=== PATIENT | male | born 1940 | race Caucasian/White ===

== ENCOUNTER 2020-10-01 13:50 | Emergency (ER) | payer MEDICARE, OTHER, SELFPAY ==
[2020-10-01 13:50] VITALS: BP 134/70; PULSE 67; RESP 16; TEMP 36.6; O2SAT 98; BMI 34.2
--- NOTE | 2020-10-01 14:23 | ED.BACK ---
HPI - Back Pain/Injury General Chief Complaint: Back Pain/Injury Stated Complaint: BAD SCIATICA OF THE BACK SENT BY Time Seen by Provider: 10/01/20 14:04 Source: patient Patient History Social History Smoking Status: Never smoker Smoking Status: Never smoker Substance Use Type: does not use Exam Initial Vital Signs Initial Vital Signs: Vital Signs Temperature 97.8 F 10/01/20 13:50 Pulse Rate 67 10/01/20 13:50 Respiratory Rate 16 10/01/20 13:50 Blood Pressure 134/70 10/01/20 13:50 Pulse Oximetry 98 10/01/20 13:50 Course Orders Ordered: Discontinued Medications Hydromorphone HCl (Hydromorphone 1 Mg Inj) 2 mg IM NOW ONE Stop: 10/01/20 14:24 Vital Signs Vital signs: Vital Signs - 8 hr 10/01/20 13:50 Temperature 97.8 F Pulse Rate 67 Respiratory Rate 16 Blood Pressure 134/70 Pulse Oximetry 98
--- NOTE | 2020-10-01 14:33 | ED_ITS ---
HPI - General Adult General Chief complaint: Back Pain/Injury Stated complaint: BAD SCIATICA OF THE BACK SENT BY DR Rothman Seen by Provider: 10/01/20 14:04 Source: patient Mode of arrival: Ambulatory Limitations: no limitations History of Present Illness HPI narrative: 80-year-old male sent to emergency department by the other spatial scientist for evaluation of his lower back pain. Patient has had chronic lower back pain. Has had 2 prior surgeries of his lower back. Has had MRIs in the past. Is under the care of orthopedic spine providers. Approximately 10 days ago had spinal injections he states since then he has not had any relief of the symptoms. He contacted his orthopedic provider who started him on a Medrol dose pack. He has only taken 1-2 days of this without any improvement. States after the 1st days medication he started having some shortness of breath and was transferred to an outside hospital by EMS where he was evaluated and patient states that he was told that he most likely had a panic attack secondary to the steroids. Despite this he has continued the medication. He also has a prescription for hydrocodone which he states does not help his back and on only makes him constipated. He also has a history of atrial fibrillation which is why he was at his other spatial scientist's office today. He was rate controlled with the plan for a cardioversion in several weeks however at his other spatial scientist office patient had worsening lower back pain and so was sent to the emergency department for evaluation. Patient does state that it is both sides of his lower back. Does not radiate down to his legs. No bowel or bladder symptoms. Related Data Home Medications Medication Instructions Recorded Confirmed atorvastatin 40 mg PO DAILY 10/01/20 10/01/20 irbesartan 150 mg PO DAILY 10/01/20 10/01/20 tamsulosin 0.4 mg PO DAILY 10/01/20 10/01/20 triamterene-hydrochlorothiazid 1 cap PO DAILY 10/01/20 10/01/20 warfarin 5 mg PO DAILY 10/01/20 10/01/20 Previous Rx's Medication Instructions Recorded hydromorphone [Dilaudid] 2 mg PO Q4-6H PRN #20 tab 10/01/20 Allergies Allergy/AdvReac Type Severity Reaction Status Date / Time No Known Drug Allergies Allergy Verified 10/01/20 14:36 Review of Systems Constitutional Constitutional: Denies fever(s) and Denies headache(s) ENT Ears, Nose, Mouth, and Throat: Denies vertigo, Denies dizziness and Denies headache(s) Cardiovascular Cardiovascular: Denies chest pain, Reports rapid heart rate and Denies dyspnea Respiratory Respiratory: Denies cough and Denies dyspnea Gastrointestinal Gastrointestinal: Denies abdominal pain, Denies change in bowel habits, Denies nausea and Denies vomiting Genitourinary Genitourinary: Denies dysuria, Denies urinary hesitancy, Denies urinary in continence and Denies urinary urgency Genitourinary: Denies difficulty voiding, Denies dysuria, Denies urinary incontinence, Denies urinary hesitancy and Denies urinary urgency Musculoskeletal Musculoskeletal: Reports back pain, Denies myalgias, Denies numbness and Denies tingling Integumentary/Breasts Skin/Breast: Denies lesions and Denies rash Neurologic Neurologic: Denies vertigo, Denies dizziness, Denies headache(s), Denies numbness and Denies tingling Hematologic/Lymphatic Comments: On anticoagulation Allergic/Immunologic Allergic/Immunologic: Denies urticaria Patient History Medical History Atrial fibrillation Chronic back pain Social History Smoking Status: Never smoker Smoking Status: Never smoker Substance Use Type: does not use Exam Initial Vital Signs Initial Vital Signs: Vital Signs Temperature 97.8 F 10/01/20 13:50 Pulse Rate 67 10/01/20 13:50 Respiratory Rate 16 10/01/20 13:50 Blood Pressure 134/70 10/01/20 13:50 Pulse Oximetry 98 10/01/20 13:50 Const General: cooperative and healthy appearing Limitations: mental status not altered [facility] Head: normal to inspection and normocephalic Resp Effort & Inspection: normal respiratory effort Cardio Rate: regular rate Rhythm: abnormal rhythm Back/Spine/Pelvis Thoracic/Lumbar Spine: paraspinal tenderness Skin Lesions: no lesions Rashes: no rashes Neuro General: patient alert, patient awake and patient oriented x3 Speech: speech normal Gait: normal gait Sensory Exam: no sensory deficits noted Extrem General: normal to inspection, capillary refill normal and No edema Psych Appearance: grossly normal and well kempt Course Orders Ordered: Discontinued Medications Hydromorphone HCl (Hydromorphone 1 Mg Inj) 2 mg IM NOW ONE Stop: 10/01/20 14:24 Last Admin: 10/01/20 14:51 Dose: 2 mg Documented by: LAUREN Vital Signs Vital signs: Vital Signs - 8 hr 10/01/20 13:50 10/01/20 15:35 10/01/20 16:00 Temperature 97.8 F Pulse Rate 67 74 Respiratory Rate 16 Blood Pressure 134/70 131/69 Pulse Oximetry 98 95 96 10/01/20 16:13 Temperature Pulse Rate 68 Respiratory Rate 18 Blood Pressure 131/64 Pulse Oximetry 97 Medical Decision Making MDM Narrative Medical decision making narrative: Patient was in atrial fibrillation however he was rate controlled here in the emergency department. The other spatial scientist who he saw earlier today electronically transmitted medications for the patient to [facility]. The patient was informed of this. He states these medicines have already been picked up by his . With regard to his lower back pain this pain that he is experiencing is not new. He is not having any bowel or urinary incontinence. No saddle anesthesia. No fevers. He did recently have a spinal injection however he stop the Coumadin for 5 days prior to the injection and for 5 days after the injection. He states that the pain that he is having now is the same pain that he has been having since even before the injection. He does not think that it is new. I did consider other condition such as a abscess/hematoma given the fact that he just had the injections however after continued questioning patient states that his pain is not new and is the same and just has continued. Because of this and will hold on radiologic studies for now however he was given strict return precautions and if his symptoms were to worsen here developed new symptoms or if they were to change he does need to return emergency department about recommend further evaluation of this. Patient has been on Percocet and Vicodin he states these do not help his symptoms at all. They do cause constipation. He is on a Medrol Dosepak. I was able to discuss the case with Dr. Salgado with Orthopedic Spine surgery who stated that unfortunately there is not much more that we could do for the patient except for potential surgery. In discussion with the orthopedic office the patient does have a follow-up appointment on October 23. I was able to change this to October 07 at their [place] office. Patient was given information with regard to this. Will send him home with oral pain medication. This was electronically transmitted to the pharmacy of his choice. We did instruct him being on bowel regimen to prevent constipation. He expressed understanding of this. Will return if his symptoms worsen. We also discussed avoiding falling at home given this medication can cause him to be drowsy. He expressed understanding of this as well. I did tell the patient that the other spatial scientist recommended that he follow-up with an INR on Wednesday this week. Patient expressed understanding and agreement. Discharge Plan Departure Patient Disposition: Home Clinical Impression: Lumbar back pain Instructions: DI for Low Back Pain Activity Restrictions/Additional Instructions: Continue all of your medications as directed. A new prescription for pain medication was electronically transmitted to [facility] in [place]. I was able to schedule you an appointment with Dr. Salgado with Orthopedics at their [facility] located at [address] [place] [address]. This appointment is for WednesdayOctober 07 at 3:20 in the afternoon with a check-in time of 3:05 in the afternoon. Continue the rest of the medicines prescribed to you by Cardiology as well. Prescriptions: New hydromorphone [Dilaudid] 2 mg tablet 2 mg PO Q4-6H PRN (Reason: pain) Qty: 20 RF: 0 No Action atorvastatin 20 mg tablet 40 mg PO DAILY RF: 0 triamterene-hydrochlorothiazid 37.5-25 mg capsule 1 cap PO DAILY RF: 0 tamsulosin 0.4 mg capsule 0.4 mg PO DAILY RF: 0 warfarin 5 mg Tablet 5 mg PO DAILY RF: 0 irbesartan 150 mg tablet 150 mg PO DAILY RF: 0
[2020-10-01] MEDS: HYDROMORPHONE 1 MG INJ 2 MG IM (14:51)
[2020-10-01 15:35] VITALS: PULSE 74; O2SAT 95
[2020-10-01 16:00] VITALS: BP 131/69; O2SAT 96
[2020-10-01 16:13] VITALS: BP 131/64; PULSE 68; RESP 18; O2SAT 97
== END 2020-10-01 18:54 | disposition home or self-care (01) ==
PROVIDERS: Emergency Provider Emergency Medicine
DX: M54.5 Low back pain (principal); I48.91 Unspecified atrial fibrillation; Z79.01 Long term (current) use of anticoagulants
CPT/HCPCS: 96372; 99281; 99283; STOP; J1170

== ENCOUNTER → 2020-10-28 08:46 | Outpatient (CLI) | payer MEDICARE, OTHER, SELFPAY ==
[2020-10-28 10:37] LABS: COVID19 -Nasal RAPID Negative (Negative)
== END ==
PROVIDERS: Nurse Practitioner; Visit Provider Student in an Organized Health Care Education/Training Program
DX: Z20.828 Contact with and (suspected) exposure to other viral communicable diseases (principal)
CPT/HCPCS: 87635

== ENCOUNTER 2020-10-29 08:58 | Inpatient (IN) | payer MEDICARE, OTHER, SELFPAY ==
[2020-10-22 12:32] VITALS: BMI 33.0
[2020-10-29] VITALS (26 sets, daily range): BP systolic 76–124; BP diastolic 27–86; PULSE 66–98; RESP 10–18; TEMP 36.1–37.1; O2SAT 90–97; BMI 33.0
--- NOTE | 2020-10-29 | DI.RAD.S_ITS ---
PROCEDURE: XR LUMBAR SPINE 2-3V INDICATIONS: L4-S1 TLIF W/ LAMINECTOMY TECHNIQUE: 2 views of the lumbar spine were acquired. COMPARISON: None. FINDINGS: Immediate postoperative examination shows expected anatomic alignment established after L4 through S1 posterior fusion with transverse pedicle screws and vertical fixation rods and interbody cage disc prosthesis devices at L4-5 and L5-S1. Bones: Soft tissues: Overlying bowel gas pattern is normal. No suspicious soft tissue calcifications. IMPRESSION: Normal alignment established after fusion and interbody disc prosthesis placement as discussed, L4 through S1. Dictated by: Rusty Sánchez M.D. on 10/29/2020 at 16:48 Approved by: Rusty Sánchez M.D. on 10/29/2020 at 16:49
--- NOTE | 2020-10-29 10:22 | PM.PREOP ---
Pre-operative Note COVID-19 COVID-19 status: Negative Result date/Date tested (Pos, Neg/Pending): 10/28/20 Interval Note History & Physical reviewed/Exam performed by Physician: Yes Changes to H&P: No
[2020-10-29] MEDS: LACTATED RINGERS 1,000 ML 42 ML IV (10:55)
[2020-10-29] MEDS: CEFAZOLIN 2 GM/100 ML FROZ.PIGGY IV ×3 (10:56→23:49)
--- NOTE | 2020-10-29 11:41 | SUR.OPER ---
Prone on spine table, head in foam head support, padded chest and pelvic supports, gel pad at knees, lower legs supported by pillows; nipples, genitalia and toes free of pressure, arms secured on foam padded arm boards at <90 degrees abduction. Tape over blanket at thigh secured to table.
[2020-10-29] MEDS: VANCOMYCIN 1,000 MG VIAL 1000 MG TOP (12:25)
[2020-10-29] MEDS: THROMBIN (RECOMBINANT) 5,000 UNIT VIAL 5000 UNIT TOP (12:26)
[2020-10-29] MEDS: SODIUM CHLORIDE 0.9% 1,000 ML, GENTAMICIN 80 MG IRR (12:27)
[2020-10-29] MEDS: GENTAMICIN 80 MG in SODIUM CHLORIDE 0.9% 100 ML 102 ML IRR (12:30)
[2020-10-29] MEDS: BUPIVACAINE LIPOSOME 266 MG/20 ML VIAL INJ (14:38)
[2020-10-29] MEDS: BUPIVACAINE 0.25% (PF) VIAL 30 ML INJ (14:39)
--- NOTE | 2020-10-29 15:22 | PM.OP.1 ---
Operative Date/Time/Diagnoses Date of procedure: 10/29/20 Time of procedure: 15:22 Pre-op diagnosis: Lumbar stenosis with radiculopathy History of lumbar laminectomy Post-op diagnosis: same Procedure & Clinicians Procedure: L4-5 revision laminectomy and foraminotomy L5-S1 laminectomy L4-5, L5-S1 TLIF (posterior/posterior interbody fusion) with cages L4, L5, S1 screws Iliac crest bone graft aspirate Use of microscope Same procedure as scheduled: Yes Indications: [age] year old male with intractable pain from stenosis. They had failed conservative management and requested operative intervention. Risks and benefits of surgery were discussed and appropriate consents were obtained. Surgeon: Carlton Salgado Inspector Glass Or Mirror: Becky Otero Anesthesia Type: General Operative Notes Findings: None Closure Type: primary Specimen(s): none sent Prosthetic devices, grafts, tissues, transplants, or devices: NuVasive MAS Reline screws Globus Rise cage Applied: catheter Estimated Blood Loss (mL): 50 Procedure in detail: The patient was brought to the operating room and intubated on the table. A time-out was performed. They were then rolled over to the well-padded [place] table in the prone position. Preoperative antibiotics were given. The back was prepped and draped in the standard sterile fashion. Using fluoroscopy, a 4 cm longitudinal incision was made to the well marked left of the midline. We used Bovie to come down to and split the lumbodorsal fascia. Using fluoroscopy and monitoring, we then percutaneously placed Jamshidi needles down the pedicles of L4, L5, and S1 on the left side. These were changed out to guidewires and then we tapped and then placed the NuVasive MAS Reline screw shanks. We then opened up the retractors and used Bovie to clear up the posterolateral gutter as well as medially along the lamina to the spinous process at L5-S1. A bur was used to decorticate the transverse process and sacral ala. We brought in the microscope. Using a combination of bur and Kerrison rongeurs, a laminectomy was performed from the left side. We cleared over past the midline and carefully depressed the dura until we were able to decompress the opposite side. We cleared out the neural foramen. This was extremely tight and required a complete facetectomy to adequately decompress it. In the end we had decompressed the exiting L5 root as well as the central canal with the traversing S1 roots. This completed the laminectomy at L5-S1. This was separate and distinct from the TLIF approach as we were decompressing the canal and the nerves. We then began the TLIF prep. We carefully cleaned up the remainder of the foramen until we could easily retract the exiting root as well as clearing medially below the dura and expose the disc space. The disc was prepped with bipolar and then an annulotomy was performed. We performed a diskectomy using a combination of paddles, mitchel, pituitaries, and curettes. We distracted the disc using a paddle and locked the retractor in an open position. We then filled the disc space with Osteocel bone graft. We then placed the globus rise cage under fluoroscopy and then filled this in with more bone graft. The distraction on the retractor was released to compress down. This completed the posterior interbody fusion portion of the TLIF at L5-S1. We then moved the retractors up to the L4-5 level. We cleared out the gutter and decorticated the L4 transverse process. We cleared over the large L4-5 facet and worked medially until we came to the junction of his previous laminectomy with the bone. We carefully cleared this area away with a curette. We then used a combination of bur, Kerrisons, and osteotomes to perform a revision left-sided laminectomy at L4-5. We completed the facetectomy at this level and opened up the foramen. We were able to clear up to about the midline but then the scar was involved past this. In the end we could sweep the ball probe cephalad and caudally and out the foramen and the exiting L4 root as well as the traversing central L5 and S1 roots were decompressed. This completed the revision laminectomy at L4-5 which was separate and distinct from the approach for a TLIF as we were working on a revision level with scar tissue which greatly increased the complexity as well as risks and time. We then placed the screw heads, chi, and locked down the set screws. The wound was copiously irrigated. A small stab incision was made over the PSIS. We used a Jamshidi needle to aspirate several mL of bone marrow from the pelvis. This was mixed with the remaining Osteocel and combined with all of the locally harvested bone graft and placed in the posterolateral gutter for the posterior fusion of the TLIF at L4-5 and L5-S1. We then went to the opposite side. Again using fluoroscopy, a 3 cm incision was made and Bovie was used to come down to split the fascia. Using neural monitoring and fluoroscopy, Jamshidi needles were advanced down the pedicles of L4, L5, and S1 on the right side. These were switched over guidewires, tapped, and screws placed. We then placed a chi and locked the set screws on this side. The wound was irrigated. The fascia was closed. Vancomycin powder was placed in the wounds. The superficial and skin were closed. A sterile dressing was placed. The patient was then rolled over extubated and brought to recovery room without complications. Complications: none Post-operative Condition: stable Disposition: PACU Plan for aftercare: Inpatient. Up with physical therapy. Anticipate 2-3 nights in the hospital.
--- NOTE | 2020-10-29 15:45 | SUR.PHASEI ---
Pt appeared very painful on arrival to PACU; moaning, unable to hold still, drawing up legs. Did not verbally respond to questions. Pain medication administered at bedside x 4 by anesthesia provider. Pt appeared more comfortable after pain med administration, however blood pressure low (76/27), 200 mcg phenylephrine given by anesthesia provider. Pressure improved to 92/57. Will continue to monitor in PACU.
[2020-10-29] MEDS: OXYCODONE IR 5 MG TABLET PO ×2 (16:29→20:36)
[2020-10-29] MEDS: HYDROCODONE/ACET 5/325 TABLET 2 TAB PO (17:31)
[2020-10-29] MEDS: LACTATED RINGERS 1,000 ML 125 ML IV (17:31)
[2020-10-29] MEDS: CELECOXIB 200 MG CAPSULE 400 MG PO (17:40)
[2020-10-29] MEDS: DOCUSATE 100 MG CAPSULE PO (20:35)
[2020-10-29] MEDS: CELECOXIB 200 MG CAPSULE PO (20:36)
[2020-10-29] MEDS: SENNOSIDES 8.6 MG TABLET 17.2 MG PO (20:36)
--- NOTE | 2020-10-29 23:30 | PC.NURSE ---
Event Note Patient with complaint of weakness and buckling knees during ambulation to bed from bathroom. NÉSTOR Watkins and RAMIREZ Wilson at bedside. Caregivers able to bring recliner to patient and able to sit in chair. VSS in recliner chair, patient request to sit in chair for a few minutes to recover. Patient unable to stand from recliner chair with 2P/FWW d/t weakness. Patient transferred to bed via mechanical lift by NÉSTOR Watkins and RAMIREZ Wilson. Nuero check by this RN, CMS+ with awake overnight counselor RN at bedside. boatswains mate RN at bedside and will continue to monitor.
[2020-10-30] VITALS (12 sets, daily range): BP systolic 95–125; BP diastolic 53–80; PULSE 77–91; RESP 13–18; TEMP 36.2–37.3; O2SAT 93–98
[2020-10-30] MEDS: OXYCODONE IR 5 MG TABLET PO ×3 (02:04→10:06)
[2020-10-30] MEDS: CEFAZOLIN 2 GM/100 ML FROZ.PIGGY IV (06:31)
[2020-10-30 07:19] LABS: Hematocrit 36.5 % (41-53); Hemoglobin 12.7 g/dL (13.5-17.5)
--- NOTE | 2020-10-30 07:49 | PM.PNPO.1 ---
Subjective Subjective Date Patient Seen: 10/30/20 Time Patient Seen: 07:49 Interval history: He is doing very well. No more of his preoperative pain into the buttocks, it is just incisional across the low back. Pain is about 3/10. Well controlled with oral medication. A little numbness on the right leg. Exam Vital Signs (past 8 hours): - 10/30/20 00:10 10/30/20 02:08 10/30/20 04:40 Temperature 99.2 F 98.8 F Pulse Rate 83 77 82 Respiratory Rate 16 16 17 Blood Pressure 111/65 120/66 106/65 Pulse Oximetry 98 94 10/30/20 07:32 Temperature Pulse Rate Respiratory Rate Blood Pressure Pulse Oximetry 97 Oxygen Delivery Method Room Air Oxygen Flow Rate 0 Const Orientation: alert and oriented x3 Back/Spine/Pelvis Other: Mild dry drainage. 5/5 motor both lower extremities. Decreased sensation lateral right thigh and calf Objective Labs Result Diagrams: 10/30/20 06:30 Labs: Laboratory Results - last 24 hr 10/30/20 06:30 Hgb 12.7 L Hct 36.5 L PFSH Medical History (Updated 10/22/20 @ 13:17 by Katy Muhammad RN) Arthritis Atrial fibrillation (11/25/17) Atrial flutter BPH (benign prostatic hyperplasia) Cardiomyopathy Chronic back pain History of cardioversion (01/20/18) History of cardioversion (06/2019) HLD (hyperlipidemia) HTN (hypertension) DONYA on CPAP Severe back pain Surgical History (Updated 10/22/20 @ 13:17 by Katy Muhammad RN) History of arthroplasty of both hips History of arthroplasty of right knee History of cardiac radiofrequency ablation (01/03/20) History of colonoscopy Hx of arthroscopic knee surgery (1989) Hx of laminectomy Hx of laminectomy Hx of release of tendon (1984) Hx of tonsillectomy Hx of vasectomy Social History (System 10/15/20 @ 08:37 by Emily Newman) household members: spouse, family and children Smoking Status: Former smoker alcohol intake: current Assessment & Plan Post-op Postoperative Procedures: Procedures Operation Date: 10/29/20 11:45 Actual Procedures Side Surgeon p L45 and L5S1 laminectomies and instrumented fusion w/bone graft Carlton Salgado MD He is doing very well. Mobilize today with physical therapy. Possibly discharge home tomorrow if he is mobilizing well.
[2020-10-30] MEDS: DOCUSATE 100 MG CAPSULE PO ×2 (09:16→21:23)
[2020-10-30] MEDS: ATORVASTATIN 20 MG TABLET 40 MG PO (09:16)
[2020-10-30] MEDS: CELECOXIB 200 MG CAPSULE PO ×2 (09:17→21:24)
[2020-10-30] MEDS: TAMSULOSIN 0.4 MG CAPSULE PO (09:17)
[2020-10-30] MEDS: METOPROLOL ER 25 MG TABLET PO (09:23)
[2020-10-30] MEDS: AMIODARONE 200 MG TABLET PO (09:23)
--- NOTE | 2020-10-30 11:12 | PT.IIE ---
Current Diagnoses Spinal stenosis, lumbar region with neurogenic claudication (10/29/20) Strain of muscle, fascia and tendon of lower back, subsequent encounter (10/29/20) Other specified postprocedural states (10/29/20) Surgery Performed Operation Date: 10/29/20 11:45 Actual Procedures p L45 and L5S1 laminectomies and instrumented fusion w/bone graft - Carlton Salgado MD Surgical History (This Medical Record has been edited. Action required.) History of arthroplasty of both hips History of arthroplasty of right knee History of cardiac radiofrequency ablation (01/03/20) History of colonoscopy Hx of arthroscopic knee surgery (1989) Hx of laminectomy Hx of laminectomy Hx of release of tendon (1984) Hx of tonsillectomy Hx of vasectomy Medical History (This Medical Record has been edited. Action required.) Arthritis Atrial fibrillation (11/25/17) Atrial flutter BPH (benign prostatic hyperplasia) Cardiomyopathy Chronic back pain History of cardioversion (01/20/18) History of cardioversion (06/2019) HLD (hyperlipidemia) HTN (hypertension) DONYA on CPAP Severe back pain Physical Therapy Inpatient Evaluation/Re-Eval M1 PT/OT-IP Prior Functional Status Start: 10/30/20 08:28 Freq: NEEDED Status: Active Protocol: Document 10/30/20 10:45 (Rec: 10/30/20 11:12 [id number]) Medical Review Prior Functional Status Medical History Reviewed Yes Diet/Fluid Consistency Regular Communication no deficits noted. able to make needs known Mobility and Gait Pt has been bed bound for the past 1.5 months d/t severe back pain. He only gets up to use bathroom without AD/ furniture cruise. He stated he cannot sit/ stand for more than a few minutes. Difficulty with bending and walking. Activities of Daily Living and IADL's Pt needed assistance from children to shower (wash his back), meal preparation. Prior Functional Level (Other details) pt had 2 laminectomies in 10 years. Social History Household Members spouse,family,children Living Arrangements House Number of Floors (Floors) One Floor Number of Stairs To Enter/Railing? 1 URI, able to place FWW on top 1 threshold step to walk in shower pt also has adjustable bed but he has been using log roll to get out of bed without elevated HOB Home Environment Standard Height Toilet,Walk in Shower Home Equipment Front Wheel Walker,Straight Cane,Bedside Commode,Raised Toilet Seat w/Armrests,Shower Seat with Backrest,Long Handled Shoe Horn,Health Education Aide,Sock Aid,Grab Bars In Shower Employment Status Retired Additional Social History Comment Pt lives with his who is quite immobile. His 3 children has been taking turns to stay with pt for the past 1.5 months to assist. They are going to stay with him at home to assist until Nov 15. M2 PT-IP Current Condition Start: 10/30/20 08:28 Freq: NEEDED Status: Active Protocol: Document 10/30/20 10:45 (Rec: 10/30/20 11:12 [id number]) Physical Therapy Current Condition Current Condition Evaluation Date 10/30/20 Treatment Diagnosis TLIF L4S1, difficulty with bed mobility and walking Onset Date 10/29/20 Precautions Lumbar Precautions Log Roll,No Twisting,Limit Bending,Lifting Restriction of 10 lbs,Gait Belt above Incisional Area Weight Bearing Status Weight Bearing Status Weight Bear as Tolerated M3 PT-IP Subjective Start: 10/30/20 08:28 Freq: NEEDED Status: Active Protocol: Document 10/30/20 10:45 HH (Rec: 10/30/20 11:12 [id number]) Subjective Physical Therapy Visit Type Type Initial Evaluation Visit Start Time 09:15 Visit Stop Time 09:55 Total Visit Minutes [address] Number of MAINTAINER PLANT Visits 0 Physical Therapy Visit Comments Patient Comments I still have the buttock pain Patient Goals To regain mobility and reduce pain upon DC home. Therapy Pain Assessment Pain When Pain Assessed During Mobility Pain Present Pain Present Pain Reported Location lower back Intensity 8 Scale Used Numeric (0 - 10) Description Acute,Sharp,With Movement Pain Behaviors Calling Out,Facial Grimacing, Guarding Pain Management Techniques Timing of Activity with Medications Bilateral Lower Buttock Intensity 8 Scale Used Numeric (0 - 10) Description Acute,Sharp,With Movement Pain Behaviors Calling Out,Facial Grimacing, Guarding Pain Management Techniques Timing of Activity with Medications M4 PT-IP Mobility and Gait Start: 10/30/20 08:28 Freq: NEEDED Status: Active Protocol: Document 10/30/20 10:45 HH (Rec: 10/30/20 11:12 [id number]) PT-Bed Mobility Assessment Rolling Type of Rolling Roll to Left Level of Assist Contact Guard Assistance,1 Person Assistance Supine to Sit Supine to Sit Contact Guard Assistance,1 Person Assistance,Bedrails Sit to Supine Sit to Supine Contact Guard Assistance,1 Person Assistance,Bedrails Scooting Scooting to Edge of Bed Contact Guard Assistance PT-Transfer Assessment Sit to and From Stand Sit to and from Stand Minimal Assistance,1 Person Assistance,Use of Upper Extremities Equipment Transfer Assistive Device Gait Belt,Front Wheeled Walker Orthotic/Prosthetic Devices or Brace: No Transfers Transfer Destination Bed,Chair Transfer Technique Stand Step Pivot Transfer Ability Level of Assist Minimal Assistance,1 Person Assistance,Use of Upper Extremities Comments Mobility Comments Pt was in bed upont PT arrival . BP at 108/61 HR 103. RN came in and delievered medication. Pt is AxO x 4 but he appeared to be shaky d/t pain as he stated. He agreed to mobilize with PT. Pt initially completed log roll to L with use of L bed rail followed by a slow SL to sit by pushing off from bed rail. Pt was calling out for pain in transition. He was able to sit at EOB unsupported for 4 mins and BP at 113/73 HR 107. Pt needed cues to push off from bed to stand up and needed min A. Pt presented a flexed trunk position in standing with increased pain to stand upright. Pt then amb from his bed to hallway for approx 15 feet very slowly with step to pattern. He then requested to return to room d/t increase buttock pain and weakness on legs. When he got to room door , his L leg appeared to be weak with slight buckling during stance phase. He was able to walk to L EOB and sat down there with min A. Pt calling out for pain and requested to return to bed. He completed sit to SL on L side followed by log roll to center with CGA. Pt was very shaky for the entire session as he stated d/t severe buttock pain 06/17. Educated pt to start bed exercises to facilitate LE muscle activation. Call light placed within reach. BP 106/57 HR 97. Bed alam and SCD activation. Gait Assessment Gait Gait Assistance Required: Contact Guard Assist Distance (Feet) 28 Able to Maintain Weight Bearing Status Yes During Gait Assistive Devices Assistive Device Gait Belt,Front Wheeled Walker Orthotic/Prosthetic Devices or Brace: No Gait Deviations General Gait Pattern Antalgic,Decreased Stride Length,Decreased Feet Clearance,Flexed Trunk,Step-to Gait Factors Limiting Gait Function Factors Limiting Gait Function Decreased Activity Tolerance, Decreased Strength,Limited Range of Motion,Pain,Poor Balance,Poor Safety Awareness Comments Gait Comments see mobility comments Stair Climbing Assessment Comments Stair Climbing Comments unable to assess PT-Balance Assessment Sitting Balance and Reactions Static Sitting Balance Ability Normal Dynamic Sitting Balance Ability Good Standing Balance and Reactions Static Standing Balance Ability Good Dynamic Standing Balance Ability Fair Device Used FWW M5 PT-IP Objective Assessments Start: 10/30/20 08:28 Freq: NEEDED Status: Active Protocol: Document 10/30/20 10:45 (Rec: 10/30/20 11:12 [id number]) Orientation Orientation/Cognition Level of Alertness Alert Orientation Name,Age,Birthday,Month,Date, Year,Day of Week,Place, Situation Language Function Ability No Deficits Noted Safety Awareness Understands Safety Issues Memory Description No Deficits Noted Gross Range of Motion Upper Extremity ROM Assessment Within Functional Limits Lower Extremity ROM Assessment Left Impaired Impairments severe pain with passive ROM on LLE WFL on RLE Strength Upper Extremity Strength Assessment Within Functional Limits Lower Extremity Strength Assessment Bilaterally Impaired Ankle 5/5 Comments Strength Comments unable to test strength d/t severe pain Sensation Assessment Sensation Gross Sensation WNL Light Touch Intact Proprioception (Position) Intact Comments Sensation Comments pt reports slight decreased sensation to touch at R lateral knee he also c/o severe nerve pain at L buttock 8/10 M6 PT-IP Treatment Start: 10/30/20 08:28 Freq: NEEDED Status: Active Protocol: Document 10/30/20 10:45 (Rec: 10/30/20 11:12 [id number]) Physical Therapy Treatment Exercises Exercises Ankle Pumps,Gluteal Sets,Quad Sets,Heel Slides Education Education Provided Precautions,Weight Bearing Status,Post-Op Packet,Safety M7 PT-IP Assessment and Plan Start: 10/30/20 08:28 Freq: NEEDED Status: Active Protocol: Document 10/30/20 10:45 (Rec: 10/30/20 11:12 [id number]) PT Summary Assessment and Plan Potential Rehabilitation Potential Good Status of Condition at Evaluation Evolving Summary Impairments Pain,ROM,Strength,Balance, Sensation,Bed Mobility, Transfers,Gait,Activity Tolerance Assessment Summary Pt is a 80 yo male s/p POD1 L45 and L5S1 laminectomies and instrumented fusion. PLOF= pt has been bed bound (only get up for bathroom access) and relied on family assistance for ADLs and IADLS d/t severe back pain. CLOF= pt cont to have severe back and buttock pain mostly on L side. He overall needed CGA for bed mobility slowly and min A for transfer. His LLE was getting weaker during ambulation (28ft ) with FWW and his pain increased 8/10 as distance increased. Will cont monitor his progress but expect pt to d/c home with family assistance and HH if his pain is more stabilized. Goals Bed Mobility Goal Standby Assistance Transfer Goal Standby Assistance,Front Wheeled Walker Gait Goal Standby Assistance,Front Wheel Walker Gait Distance 100 Other Goals 1 platform step with FWW Days to Meet Goals 5 Frequency of Treatment Frequency Of Treatment Twice a Day Treatment Plan Physical Therapy Treatment Plan Bed Mobility Training,Transfer Training,Gait Training, Therapeutic Exercise,Balance Retraining,Post Op Education, Discharge Planning Other Recommendations and Next Treatment check vitals Focus review precuations mobility as stephanie, Recommendations To Nursing Amount of Assist Needed 2 Person Assist Discharge Recommendations PT Discharge Recommendations Home with Assistance,Home Health Transportation Needs at Discharge Private Vehicle
--- NOTE | 2020-10-30 11:58 | OT.IPNOTE ---
Approached pt for OT eval and pt able to states all back precautions, has all the equipment and family has already been assisting him for the past 1.5 months. Pt not wanting and refusing OT eval. Therefore, discharge OT eval orders.
[2020-10-30] MEDS: INFLUENZA HD VACCINE 0.7 ML SYRINGE IM (12:25)
[2020-10-30] MEDS: OXYCODONE IR 5 MG TABLET 10 MG PO ×3 (14:45→21:24)
--- NOTE | 2020-10-30 14:45 | PT.IPTN ---
Current Diagnoses Spinal stenosis, lumbar region with neurogenic claudication (10/29/20) Strain of muscle, fascia and tendon of lower back, subsequent encounter (10/29/20) Other specified postprocedural states (10/29/20) Surgery Performed Operation Date: 10/29/20 11:45 Actual Procedures p L45 and L5S1 laminectomies and instrumented fusion w/bone graft - Carlton Salgado MD Physical Therapy Treatment Note M2 PT-IP Current Condition Start: 10/30/20 08:28 Freq: NEEDED Status: Active Protocol: Document 10/30/20 10:45 HH (Rec: 10/30/20 11:12 HH [id number]) Physical Therapy Current Condition Current Condition Evaluation Date 10/30/20 Treatment Diagnosis TLIF L4S1, difficulty with bed mobility and walking Onset Date 10/29/20 Precautions Lumbar Precautions Log Roll,No Twisting,Limit Bending,Lifting Restriction of 10 lbs,Gait Belt above Incisional Area Weight Bearing Status Weight Bearing Status Weight Bear as Tolerated M3 PT-IP Subjective Start: 10/30/20 08:28 Freq: NEEDED Status: Active Protocol: Document 10/30/20 14:00 SP (Rec: 10/30/20 17:54 SP [id number]) Subjective Physical Therapy Visit Type Type Treatment Note Visit Start Time 14:00 Visit Stop Time 14:45 Total Visit Minutes 45 Notes cather removed. Number of PAPER CONE DRYING MACHINE OPERATOR Visits 1 Physical Therapy Visit Comments Patient Comments I still have buttocks pain but ok as long as wt shift onto R side. My mouth is really dry. Patient Goals To regain mobility and reduce pain upon DC home. Therapy Pain Assessment Pain When Pain Assessed During Mobility Pain Present Pain Present Pain Reported Location lower back Intensity 8 Scale Used Numeric (0 - 10) Pain Behaviors Calling Out,Facial Grimacing, Guarding Pain Management Techniques Timing of Activity with Medications Bilateral Lower Buttock Intensity 8 Scale Used Numeric (0 - 10) Pain Behaviors Calling Out,Facial Grimacing, Guarding Pain Management Techniques Timing of Activity with Medications M4 PT-IP Mobility and Gait Start: 10/30/20 08:28 Freq: NEEDED Status: Active Protocol: Document 10/30/20 14:00 SP (Rec: 10/30/20 17:54 SP [id number]) PT-Bed Mobility Assessment Rolling Type of Rolling Roll to Left Level of Assist Moderate Assistance,1 Person Assistance Supine to Sit Supine to Sit Maximum Assistance,1 Person Assistance,Bedrails Scooting Scooting to Edge of Bed Contact Guard Assistance PT-Transfer Assessment Sit to and From Stand Sit to and from Stand Maximum Assistance,1 Person Assistance,Use of Upper Extremities Equipment Transfer Assistive Device Gait Belt,Front Wheeled Walker Orthotic/Prosthetic Devices or Brace: No Transfers Transfer Destination Bed,Chair Transfer Technique Stand Step Pivot Transfer Ability Level of Assist Minimal Assistance,Moderate Assistance,1 Person Assistance ,Use of Upper Extremities Comments Mobility Comments Pt was inclined when arrived in bed. Lowered bed to 12 deg tolerated. Log roll to L with Mod A of 1, L sidelying to sitting Max A x1 with cuing to push with LUE on bed and RUE pulling from therapist hand and support at upper back to transition to sitting. Scoot to EOB SBA. Sitting balance during vitals noted pt using BUE on FWW or bed for self support. Assess vitals in sitting: BP 108/61, sit> stand Max A x1 with BP in standing Min A for balance 117/50 HR 104, SPT bed to chair Min A using FWW heavy UE WB with decreased foot clearance cued upright posture. stand>sit mod A x1. Pt stood x2 more attempts with PAPER CONE DRYING MACHINE OPERATOR for strength and nurse dressing change with report of dizziness and unsteady BLE, supported anterior knees with max cuing for BUE reach back and slow descent into chair Max A x1. Vitals taken upon sitting: BP 77/51, after 2 min 98/54, 2 more min 107/60 and reported dizziness is gone. WILDLIFE ECOLOGY PROFESSOR provided SBA while PAPER CONE DRYING MACHINE OPERATOR acquired warm blanket and pt agreed to stay up in chair with call light with proper response of correct use and all needs in reach before left . Educated to patient to continue to use water, breathing apparatus and when ready to return to bed nursing can assist him. Continue to recommend skilled PT to increase strength and assess vitals for safety. PAPER CONE DRYING MACHINE OPERATOR recommended to nursing to provide waffle cushion for assist with bottom pain complaints, and commented will provide to him. Gait Assessment Gait Gait Assistance Required: Contact Guard Assist Distance (Feet) 3 Able to Maintain Weight Bearing Status Yes During Gait Assistive Devices Assistive Device Gait Belt,Front Wheeled Walker Orthotic/Prosthetic Devices or Brace: No Gait Deviations General Gait Pattern Antalgic,Decreased Stride Length,Decreased Feet Clearance,Flexed Trunk,Narrow Based Gait,Step-to Gait Factors Limiting Gait Function Factors Limiting Gait Function Decreased Activity Tolerance, Decreased Strength,Limited Range of Motion,Pain,Poor Balance,Poor Safety Awareness Comments Gait Comments See mobility comments. Stair Climbing Assessment Comments Stair Climbing Comments unable to assess PT-Balance Assessment Sitting Balance and Reactions Static Sitting Balance Ability Fair Dynamic Sitting Balance Ability Poor Standing Balance and Reactions Static Standing Balance Ability Poor Dynamic Standing Balance Ability Poor Device Used FWW M5 PT-IP Objective Assessments Start: 10/30/20 08:28 Freq: NEEDED Status: Active Protocol: Document 10/30/20 10:45 HH (Rec: 10/30/20 11:12 HH [id number]) Orientation Orientation/Cognition Level of Alertness Alert Orientation Name,Age,Birthday,Month,Date, Year,Day of Week,Place, Situation Language Function Ability No Deficits Noted Safety Awareness Understands Safety Issues Memory Description No Deficits Noted Gross Range of Motion Upper Extremity ROM Assessment Within Functional Limits Lower Extremity ROM Assessment Left Impaired Impairments severe pain with passive ROM on LLE WFL on RLE Strength Upper Extremity Strength Assessment Within Functional Limits Lower Extremity Strength Assessment Bilaterally Impaired Ankle 5/5 Comments Strength Comments unable to test strength d/t severe pain Sensation Assessment Sensation Gross Sensation WNL Light Touch Intact Proprioception (Position) Intact Comments Sensation Comments pt reports slight decreased sensation to touch at R lateral knee he also c/o severe nerve pain at L buttock 8/10 M6 PT-IP Treatment Start: 10/30/20 08:28 Freq: NEEDED Status: Active Protocol: Document 10/30/20 14:00 SP (Rec: 10/30/20 17:54 SP [id number]) Physical Therapy Treatment Education Education Provided Precautions,Weight Bearing Status,Post-Op Packet,Safety M7 PT-IP Assessment and Plan Start: 10/30/20 08:28 Freq: NEEDED Status: Active Protocol: Document 10/30/20 14:00 SP (Rec: 10/30/20 17:54 SP [id number]) PT Summary Assessment and Plan Potential Rehabilitation Potential Good Status of Condition at Evaluation Evolving Summary Impairments Pain,ROM,Strength,Balance, Sensation,Bed Mobility, Transfers,Gait,Activity Tolerance Progress Towards Goals Slow Progress due to Pain,Slow Progress due to Activity Tolerance Assessment Summary Pt required Max A of 1 during all mobility, cued Quad extension during sit>stand for safety of buckling, decreased activity tolerance and buttock and back pain same as before procedure. Pt requires continued skilled rehab to improve strength, at this time recommending SNF VS home w/ HHPT to improve strength and functional mobility for safe DC home but will continue to assess. Goals Bed Mobility Goal Standby Assistance Transfer Goal Standby Assistance,Front Wheeled Walker Gait Goal Standby Assistance,Front Wheel Walker Gait Distance 100 Other Goals 1 platform step with FWW Days to Meet Goals 5 Frequency of Treatment Frequency Of Treatment Twice a Day Treatment Plan Physical Therapy Treatment Plan Bed Mobility Training,Transfer Training,Gait Training, Therapeutic Exercise,Balance Retraining,Post Op Education, Discharge Planning Other Recommendations and Next Treatment Check vitals, review Focus precautions, bed mobility, transfers, gait using FWW, stairs if able. Caregiver training if safe to DC. Recommendations To Nursing Amount of Assist Needed 1 Person Assist Discharge Recommendations PT Discharge Recommendations Home with Assistance,Home Health,SNF Rehab Other Discharge Recommendations Recommending SNF vs HHPT and home with assist. will require caregiver traininng prior to dc. Transportation Needs at Discharge Private Vehicle
[2020-10-30] MEDS: diazePAM 5 MG TABLET PO (15:52)
[2020-10-30] MEDS: SENNOSIDES 8.6 MG TABLET 17.2 MG PO (21:24)
[2020-10-31] MEDS: OXYCODONE IR 5 MG TABLET PO (00:57)
[2020-10-31 04:00] VITALS: BP 108/52; PULSE 93; RESP 18; TEMP 37.1; O2SAT 96
[2020-10-31] MEDS: OXYCODONE IR 5 MG TABLET 10 MG PO ×2 (04:11→07:58)
[2020-10-31 07:54] VITALS: BP 103/68; PULSE 95; RESP 19; TEMP 37.3; O2SAT 95
[2020-10-31 07:57] VITALS: BP 103/59
[2020-10-31] MEDS: CELECOXIB 200 MG CAPSULE PO (07:57)
[2020-10-31] MEDS: DOCUSATE 100 MG CAPSULE PO (07:57)
[2020-10-31] MEDS: METOPROLOL ER 25 MG TABLET PO (07:57)
[2020-10-31] MEDS: TAMSULOSIN 0.4 MG CAPSULE PO (07:57)
[2020-10-31] MEDS: ATORVASTATIN 20 MG TABLET 40 MG PO (07:58)
[2020-10-31] MEDS: SODIUM CHLORIDE 0.9% FLUSH 10 ML IV (07:59)
--- NOTE | 2020-10-31 08:10 | PM.PNPO.1 ---
Subjective Subjective Date Patient Seen: 10/31/20 Time Patient Seen: 08:10 Interval history: These doing well. Pain is under good control with oral medication. Still requiring minimal assist for mobility. Exam Vital Signs (past 8 hours): - 10/31/20 04:00 10/31/20 07:54 10/31/20 07:57 Temperature 98.8 F 99.1 F Pulse Rate 93 H 95 H Respiratory Rate 18 19 Blood Pressure 108/52 L 103/68 103/59 L Pulse Oximetry 96 95 Oxygen Delivery Method Room Air Oxygen Flow Rate 0 Const Orientation: alert and oriented x3 Back/Spine/Pelvis Other: Mild drainage, dressing peeling up. 5/5 motor both lower extremities Objective Labs Result Diagrams: 10/30/20 06:30 PFS Medical History (Updated 10/22/20 @ 13:17 by Katy Muhammad RN) Arthritis Atrial fibrillation (11/25/17) Atrial flutter BPH (benign prostatic hyperplasia) Cardiomyopathy Chronic back pain History of cardioversion (01/20/18) History of cardioversion (06/2019) HLD (hyperlipidemia) HTN (hypertension) DONYA on CPAP Severe back pain Surgical History (Updated 10/22/20 @ 13:17 by Katy Muhammad RN) History of arthroplasty of both hips History of arthroplasty of right knee History of cardiac radiofrequency ablation (01/03/20) History of colonoscopy Hx of arthroscopic knee surgery (1989) Hx of laminectomy Hx of laminectomy Hx of release of tendon (1984) Hx of tonsillectomy Hx of vasectomy Social History (System 10/15/20 @ 08:37 by Emily Newman) household members: spouse, family and children Smoking Status: Former smoker alcohol intake: current Assessment & Plan Post-op Postoperative Procedures: Procedures Operation Date: 10/29/20 11:45 Actual Procedures Side Surgeon p L45 and L5S1 laminectomies and instrumented fusion w/bone graft Carlton Salgado MD He is doing better. Replace the dressing that is partially peeling up. He really wants to go home today and feels stable. He will have a brother and 2 of his son-in-law's at home to help him over the next week so he has plenty of physical assistance. I think he should be fine.
--- NOTE | 2020-10-31 08:12 | PM.DS.1 ---
History of Present Illness History of Present Illness Date Patient Seen: 10/31/20 Time Patient Seen: 08:12 Chief complaint: Translaminar Interbody Fusion/Laminotomy Narrative: 80-year-old male with stenosis. He has had severe pain in his legs in the buttocks for the past several months. Pain has been sharp and stabbing. No relief with therapy. An epidural injection made it worse Discharge Providers Provider Date of admission: 10/29/20 08:58 Discharge Date: 10/31/20 Consults: 10/29/20 10:01 Consult to Respiratory Therapy Evaluate & Treat Comment: Physician Instructions: Evaluate and treat 10/29/20 16:56 Consult to Occupational Therapy Evaluate & Treat Comment: Physician Instructions: Evaluate and treat Consult to Physical Therapy Evaluate & Treat Comment: Physician Instructions: Evaluate and Treat Discharge provider: Carlton Salgado MD Summary Hospital Course Discharge Diagnosis: Lumbar stenosis and spondylolisthesis History of lumbar laminectomy Hospital Course: He was admitted to the hospital on 10/29/2020 where he underwent a revision laminectomy and instrumented fusion TLIF at L4-5 and L5-S1. Postoperatively he did very well. Good pain control on oral medication. He mobilized with physical therapy and was still requiring a little bit of assistance but had plenty of help at home. Status at Discharge Functional status at discharge: uses cane/walker Overall status at discharge: patient is progressing back to baseline Exam Vital Signs (past 8 hours): - 10/31/20 04:00 10/31/20 07:54 10/31/20 07:57 Temperature 98.8 F 99.1 F Pulse Rate 93 H 95 H Respiratory Rate 18 19 Blood Pressure 108/52 L 103/68 103/59 L Pulse Oximetry 96 95 Oxygen Delivery Method Room Air Oxygen Flow Rate 0 Const Orientation: alert and oriented x3 Back/Spine/Pelvis Other: Mild drainage. 5/5 motor both lower extremities. Objective Labs Result Diagrams: 10/30/20 06:30 [facility] Medical History Arthritis Atrial fibrillation (11/25/17) Atrial flutter BPH (benign prostatic hyperplasia) Cardiomyopathy Chronic back pain History of cardioversion (01/20/18) History of cardioversion (06/2019) HLD (hyperlipidemia) HTN (hypertension) DONYA on CPAP Severe back pain Surgical History (Updated 10/22/20 @ 13:17 by Katy Muhammad RN) History of arthroplasty of both hips History of arthroplasty of right knee History of cardiac radiofrequency ablation (01/03/20) History of colonoscopy Hx of arthroscopic knee surgery (1989) Hx of laminectomy Hx of laminectomy Hx of release of tendon (1984) Hx of tonsillectomy Hx of vasectomy Social History household members: spouse, family and children Smoking Status: Former smoker alcohol intake: current Discharge Assessment & Plan Assessment and Plan Assessment: Status post laminectomy and fusion Plan of Treatment: Discharge home Discharge Plan Discharge Plan Patient Disposition: Home Provider Discharge Comment: Follow-up 1.5 weeks Discharge orders & Medications Prescriptions: New diazepam 5 mg Tablet 5 mg PO Q6HR PRN (Reason: Spasms) Qty: 20 RF: 0 docusate sodium [DOK] 100 mg Capsule 100 mg PO BID PRN (Reason: constipation) Qty: 40 RF: 0 oxycodone 5 mg Tablet See Rx Instructions .ROUTE .COMPLEX PRN (Reason: Pain, Moderate (4-6)) Qty: 35 RF: 0 Continued amiodarone 200 mg Tablet 200 mg PO DAILY RF: 0 metoprolol succinate 25 mg Tablet Extended Release 24 Hr 25 mg PO DAILY RF: 0 atorvastatin 20 mg tablet 40 mg PO DAILY RF: 0 triamterene-hydrochlorothiazid 37.5-25 mg capsule 1 cap PO DAILY RF: 0 tamsulosin 0.4 mg capsule 0.4 mg PO DAILY RF: 0 warfarin 5 mg Tablet 5 mg PO SEEINSTR RF: 0 irbesartan 150 mg tablet 150 mg PO DAILY RF: 0
[2020-10-31] MEDS: AMIODARONE 200 MG TABLET PO (08:41)
--- NOTE | 2020-10-31 10:54 | PC.NURSE ---
Addendum entered by Johanna Freeman R.N. 10/31/20 11:19: IV removed. Pt talking with rep. about his bone growth stimulator. Pt is dressed and ready to go home as soon as his spouse arrives. Went over d/c instructions with Pt-discussed d/c meds, time of last dose, reviewed stroke education, s/s of infection, back precautions, showering, and follow up. Encouraged Pt to drink plenty of fluids to prevent constipation or dehydration and reminded Pt that he is not allowed to drive while he is on narcotics. Pt denied further questions and will be taken out to POV via w/c by GENERAL OFFICE ASSOCIATE with all belongings. Original Note: Dressing to back changed to new Coversite.
--- NOTE | 2020-10-31 11:15 | PT.IPTN ---
Current Diagnoses Spinal stenosis, lumbar region with neurogenic claudication (10/29/20) Strain of muscle, fascia and tendon of lower back, subsequent encounter (10/29/20) Other specified postprocedural states (10/29/20) Surgery Performed Operation Date: 10/29/20 11:45 Actual Procedures p L45 and L5S1 laminectomies and instrumented fusion w/bone graft - Carlton Salgado MD Physical Therapy Treatment Note M2 PT-IP Current Condition Start: 10/30/20 08:28 Freq: NEEDED Status: Discharge Protocol: Document 10/30/20 10:45 HH (Rec: 10/30/20 11:12 [id number]) Physical Therapy Current Condition Current Condition Evaluation Date 10/30/20 Treatment Diagnosis TLIF L4S1, difficulty with bed mobility and walking Onset Date 10/29/20 Precautions Lumbar Precautions Log Roll,No Twisting,Limit Bending,Lifting Restriction of 10 lbs,Gait Belt above Incisional Area Weight Bearing Status Weight Bearing Status Weight Bear as Tolerated M3 PT-IP Subjective Start: 10/30/20 08:28 Freq: NEEDED Status: Discharge Protocol: Document 10/31/20 10:48 SP (Rec: 10/31/20 13:12 SP [email or web address]) Subjective Physical Therapy Visit Type Type Treatment Note Visit Start Time 10:48 Visit Stop Time 11:15 Total Visit Minutes 27 Notes Nurse Saha in room beginning of tx for assist with dressing change. Number of SEISMOGRAPH OBSERVER Visits 2 Physical Therapy Visit Comments Patient Comments I am need to get up and use the bathroom, think I am ready to go home with my family. Patient Goals To return home with many family members to assist him. Therapy Pain Assessment Pain When Pain Assessed During Mobility Pain Present Pain Present Pain Reported Location lower back Intensity 5 Scale Used 2/10 at rest, 5/10 during mobility Description Aching Pain Behaviors Calling Out,Facial Grimacing, Guarding Pain Management Techniques Timing of Activity with Medications M4 PT-IP Mobility and Gait Start: 10/30/20 08:28 Freq: NEEDED Status: Discharge Protocol: Document 10/31/20 10:48 SP (Rec: 10/31/20 13:12 SP [id number]) PT-Bed Mobility Assessment Rolling Type of Rolling Roll to Left Level of Assist Standby Assistance Supine to Sit Supine to Sit Standby Assistance,Bedrails Scooting Scooting to Edge of Bed Standby Assistance PT-Transfer Assessment Sit to and From Stand Sit to and from Stand Contact Guard Assistance, Minimal Assistance,1 Person Assistance,Use of Upper Extremities Equipment Transfer Assistive Device Gait Belt,Front Wheeled Walker Orthotic/Prosthetic Devices or Brace: No Transfers Transfer Destination Chair Transfer Technique pt ambulated using fWW Transfer Ability Level of Assist Contact Guard Assistance,1 Person Assistance,Use of Upper Extremities Comments Mobility Comments Pt supine in bed when arrived. Cued for knees bent then move knees with trunk together RUE cross body with LE to LR L, L sidelying>sit usign BUE for self transition required close SBA for safety at EOB, scoot to EOB. Nurse reeducated sitting still for a bit for safety awareness stable transition of positions. Sit> stand requiring heavy BUE and Meme x1 unsteady BLE cued stationary awareness stable B knee extension then ambulated using FWW into bathroom cued to use FWW over toilet for safety with stability while voiding, CGA. Pt back stepped out of bathroom then returned to sitting at EOB CGA w/ FWW. 5 min rest seated at EOB UE support as needed, pt requested getting dressed at EOB, assisted with shoes and LE into pants to maintain no bending precautions, I dressing rest. Sit> stand then ambulated to 1 PF step approx 4 ft, ascend/descend using FWW CGA step to gait with occasional cuing for safety positioning to assimulate enter/exit home. Pt ambulated back to chair approx 10 ft w/ FWW CGA, SPT to sit in chair, CG- 10 % A to descend into chair. Pt was seated in chair with call light and all needs in reach before left. Bone stimulator staff entered room to assist instruct and dispense bone stimulator for home use. Pt is ok to return home with family to assist him when medically cleared. Has all equipment needs. Gait Assessment Gait Gait Assistance Required: Contact Guard Assist Distance (Feet) 10 Able to Maintain Weight Bearing Status Yes During Gait Assistive Devices Assistive Device Gait Belt,Front Wheeled Walker Orthotic/Prosthetic Devices or Brace: No Gait Deviations General Gait Pattern Antalgic,Decreased Stride Length,Decreased Feet Clearance,Flexed Trunk Factors Limiting Gait Function Factors Limiting Gait Function Decreased Activity Tolerance, Decreased Strength,Limited Range of Motion,Pain,Poor Balance Comments Gait Comments See mobility comments. Stair Climbing Assessment Evaluation Level of Assist On Stairs Contact Guard Assistance,1 Person Assistance Devices Stair Climbing Assistive Devices Front Wheel Walker Technique/Endurance Stair Climbing Direction Ascend and Descend Stair Climbing Technique Step to Step Number of Steps Climbed 1 Stair Climbing Set # Repetitions (reps) 1 Comments Stair Climbing Comments see mobility comments PT-Balance Assessment Sitting Balance and Reactions Static Sitting Balance Ability Good Dynamic Sitting Balance Ability Good Standing Balance and Reactions Static Standing Balance Ability Fair Dynamic Standing Balance Ability Fair Device Used FWW M5 PT-IP Objective Assessments Start: 10/30/20 08:28 Freq: NEEDED Status: Discharge Protocol: Document 10/30/20 10:45 HH (Rec: 10/30/20 11:12 HH [id number]) Orientation Orientation/Cognition Level of Alertness Alert Orientation Name,Age,Birthday,Month,Date, Year,Day of Week,Place, Situation Language Function Ability No Deficits Noted Safety Awareness Understands Safety Issues Memory Description No Deficits Noted Gross Range of Motion Upper Extremity ROM Assessment Within Functional Limits Lower Extremity ROM Assessment Left Impaired Impairments severe pain with passive ROM on LLE WFL on RLE Strength Upper Extremity Strength Assessment Within Functional Limits Lower Extremity Strength Assessment Bilaterally Impaired Ankle 5/5 Comments Strength Comments unable to test strength d/t severe pain Sensation Assessment Sensation Gross Sensation WNL Light Touch Intact Proprioception (Position) Intact Comments Sensation Comments pt reports slight decreased sensation to touch at R lateral knee he also c/o severe nerve pain at L buttock 8/10 M6 PT-IP Treatment Start: 10/30/20 08:28 Freq: NEEDED Status: Discharge Protocol: Document 10/31/20 10:48 SP (Rec: 10/31/20 13:12 SP [id number]) Physical Therapy Treatment Education Education Provided Precautions,Weight Bearing Status,Post-Op Packet,Safety M7 PT-IP Assessment and Plan Start: 10/30/20 08:28 Freq: NEEDED Status: Discharge Protocol: Document 10/31/20 10:48 SP (Rec: 10/31/20 13:12 SP [id number]) PT Summary Assessment and Plan Potential Rehabilitation Potential Good Status of Condition at Evaluation Evolving Summary Impairments Pain,ROM,Strength,Balance, Sensation,Bed Mobility, Transfers,Gait,Activity Tolerance Progress Towards Goals Progressing Toward Goals,Slow Progress due to Pain,Slow Progress due to Activity Tolerance Assessment Summary Pt required SBA during bed mobility, Min> CGA using FWW during standing mobility. Walked room distance approx 10 ft, 8 ft, and ascend/descend 1 PF step using FWW, CGA. Cued awareness of upright posture and knee extension to increase LE stabiltiy. Recommending pt is able to return home with family to assist him, recommending HHPT to improve strength and functional mobility when medically cleared. Goals Bed Mobility Goal Standby Assistance Transfer Goal Standby Assistance,Front Wheeled Walker Gait Goal Standby Assistance,Front Wheel Walker Gait Distance 100 Other Goals 1 platform step with FWW Days to Meet Goals 5 Frequency of Treatment Frequency Of Treatment Twice a Day Treatment Plan Physical Therapy Treatment Plan Bed Mobility Training,Transfer Training,Gait Training, Therapeutic Exercise,Balance Retraining,Post Op Education, Discharge Planning Other Recommendations and Next Treatment distance gait using FWW, ther Focus ex. Recommendations To Nursing Amount of Assist Needed 1 Person Assist Discharge Recommendations PT Discharge Recommendations Home with Assistance,Home Health,SNF Rehab Other Discharge Recommendations HHPT to improve strength toward PLOF with LRAD. Transportation Needs at Discharge Private Vehicle
== END 2020-10-31 11:58 | disposition home or self-care (01) | DRG 454 ==
PROVIDERS: Admitting Provider Orthopaedic Surgery; Referring Provider Orthopaedic Surgery; Visit Provider Orthopaedic Surgery
PROC: 0SG00AJ Fusion of Lumbar Vertebral Joint with Interbody Fusion Device, Posterior Approach, Anterior Column, Open Approach (ICD-10-PCS; principal; 2020-10-29 11:45)
DX: M48.062 Spinal stenosis, lumbar region with neurogenic claudication (principal); I48.92 Unspecified atrial flutter; E66.9 Obesity, unspecified; I10 Essential (primary) hypertension; I48.91 Unspecified atrial fibrillation; I51.7 Cardiomegaly; N40.0 Benign prostatic hyperplasia without lower urinary tract symptoms; E78.5 Hyperlipidemia, unspecified; G47.33 Obstructive sleep apnea (adult) (pediatric); M54.16 Radiculopathy, lumbar region; M43.16 Spondylolisthesis, lumbar region; M96.1 Postlaminectomy syndrome, not elsewhere classified; Z68.33 Body mass index [BMI] 33.0-33.9, adult; Z87.891 Personal history of nicotine dependence; Z79.01 Long term (current) use of anticoagulants; Z20.828 Contact with and (suspected) exposure to other viral communicable diseases
CPT/HCPCS: 36415; 72100; 76000; 82962; 85014; 85018; 85610; 87635; 90471; 90662; 94762; 97116; 97162; 97530; C1776; C9803; C9290; J0330; J0595; J0690; J1170; J2250; J2274; J2405; J2704; J3010

== ENCOUNTER → 2020-11-29 12:21 | Outpatient (CLI) | payer MEDICARE, OTHER, SELFPAY ==
[2020-10-29 17:18] VITALS: BMI 33.0
[2020-11-29 12:42] LABS: Prothrombin Time 45.8 SECONDS (10.1-12.7)
== END ==
PROVIDERS: Referring Provider Internal Medicine Cardiovascular Disease; Visit Provider Internal Medicine Cardiovascular Disease
DX: I48.91 Unspecified atrial fibrillation (principal)
CPT/HCPCS: 36415; 85610

== ENCOUNTER → 2020-12-04 09:37 | Outpatient (CLI) | payer MEDICARE, OTHER, SELFPAY ==
[2020-10-29 17:18] VITALS: BMI 33.0
[2020-12-04 11:07] LABS: COVID19 -Nasal RAPID Negative (Negative)
== END ==
PROVIDERS: Visit Provider Nurse Practitioner
DX: Z20.822 Contact with and (suspected) exposure to COVID-19 (principal)
CPT/HCPCS: 87635

== ENCOUNTER 2020-12-05 10:30 | Day surgery (SDC) | payer MEDICARE, OTHER, SELFPAY ==
[2020-10-29 17:18] VITALS: BMI 33.0
[2020-12-05] VITALS (10 sets, daily range): BP systolic 81–126; BP diastolic 46–82; PULSE 66–88; RESP 11–17; TEMP 35.9–36.7; O2SAT 89–98; BMI 31.9
--- NOTE | 2020-12-05 11:09 | PM.PREOP ---
Pre-operative Note COVID-19 COVID-19 status: Negative Result date/Date tested (Pos, Neg/Pending): 12/04/20 Interval Note History & Physical reviewed/Exam performed by Physician: Yes Changes to H&P: No H&P completed within 30 days and has changed as indicated here:: checking INR
[2020-12-05] MEDS: ACETAMINOPHEN 325 MG TABLET 975 MG PO (11:38)
[2020-12-05] MEDS: LACTATED RINGERS 1,000 ML 42 ML IV ×2 (11:41→12:42)
--- NOTE | 2020-12-05 12:00 | DI.RAD.S_ITS ---
PROCEDURE: XR LUMBAR SPINE 2-3V INDICATIONS: L5-S1 CAGE REINSERTION TECHNIQUE: 2 intraoperative views of the lumbar spine were acquired. COMPARISON: [facility] [place], CR, XR LUMBAR SPINE 2 OR 3 VIEWS, 11/29/2020, 13:44. [facility], CR, XR LUMBAR SPINE 2-3V, 10/29/2020, 14:58. FINDINGS: Intraoperative guidance provided. Pedicle screws at L4, L5, S1. Intervertebral body spacers at L4-L5 and L5-S1. Hardware is in the expected position IMPRESSION: Intraoperative guidance provided. Dictated by: Abel Connolly M.D. on 12/05/2020 at 14:31 Approved by: Abel Connolly M.D. on 12/05/2020 at 14:32
[2020-12-05] MEDS: CEFAZOLIN 2 GM/100 ML FROZ.PIGGY IV (12:02)
[2020-12-05] MEDS: BUPIVACAINE 0.25% W/ EPI (PF) 10 ML VIAL 20 ML INJ (12:44)
[2020-12-05] MEDS: VANCOMYCIN 1,000 MG VIAL 1000 MG TOP (12:44)
[2020-12-05] MEDS: BUPIVACAINE LIPOSOME 266 MG/20 ML VIAL INJ (12:45)
[2020-12-05] MEDS: SODIUM CHLORIDE 0.9% 1,000 ML, GENTAMICIN 80 MG IRR ×2 (12:45→12:47)
[2020-12-05] MEDS: THROMBIN (RECOMBINANT) 5,000 UNIT VIAL 5000 UNIT TOP (12:45)
--- NOTE | 2020-12-05 13:56 | PM.OP.1 ---
Operative Date/Time/Diagnoses Date of procedure: 12/05/20 Time of procedure: 13:56 Pre-op diagnosis: Loosening of lumbar hardware causing stenosis with radiculopathy Post-op diagnosis: same Procedure & Clinicians Procedure: Revision left L5-S1 laminotomy with reinsertion of hardware Same procedure as scheduled: Yes Indications: [age] year old male with intractable pain from radiculopathy from posterior migration of his lumbar cage. He had failed conservative management and requested operative intervention. Risks and benefits of surgery were discussed and appropriate consents were obtained. Surgeon: Carlton Salgado Manager Search Engine: Becky Otero Anesthesia Type: General Operative Notes Findings: None Closure Type: primary Specimen(s): none sent Applied: catheter Estimated Blood Loss (mL): 30 Procedure in detail: Patient was brought to the operating room and intubated on the table. A time-out was performed. There were rolled over the well-padded prone position on the [place] table. The back was prepped and draped in standard sterile fashion. Preoperative antibiotics were given. Using fluoroscopy, a 3 cm incision was made using his previous incision on the bone marked left of the midline at the L5-S1 level. We used Bovie to come down to and split the fascia. We then bluntly dissected down to the posterior screws and exposed them. We also bluntly dissected medially to get towards the canal. The S1 set screw was loosened and the distractor was used to spread across the screws and it was locked back down. We then placed the maXcess retractor and opened up over a previous laminectomy site. We then performed a revision laminotomy on the left at L5-S1 and carefully removed all the scar tissue little by little until we could come down to the facets and then worked our way down through the foramen. We used a curette and a ball probe to work around until we could trace medially along both pedicles of L5 and S1. We found our exiting L5 nerve root and this was clear. We continued working and sweeping medially until we could finally free up a large amount of scar tissue and come down to the dura. We placed the ball probe underneath the dura and gradually lifted up and went medially and could feel the cage. We then continued working around the cage with blunt dissection with a ball probe until we finally had elevated up the dura and could bring it part of the way around the cage but could not expose the full cage. At this point the torque handle was placed into the cage and we compressed it down. We then used an impactor and drove it back to the level of the posterior wall. We then could clear up a little bit more and could get a bigger impactor an and drove the cage further anteriorly as far as it would go. This position was confirmed under x-ray. We then used the torque an awl to expand the cage. We had much better expansion then we did before and was also in a more anterior position. This felt firm once we were done. The wound was copiously irrigated. We then removed the retractor and went back to the S1 screw. We loosened the set screw and then used a compressor to compress across L5 and S1 and then locked the set screw back down. The wound was then again copiously irrigated. The fascia was closed in layers. Vancomycin powder was placed in the wound. Superficial and skin were closed. Sterile dressing was placed. The patient was then rolled over, transferred to the stretcher, and brought to recovery room without complications. Complications: none Post-operative Condition: stable Disposition: PACU Plan for aftercare: Outpatient. Limited bending, twisting, lifting for 6 weeks.
--- NOTE | 2020-12-05 16:26 | SUR.PHASEII ---
Pt attempted to get up and walk when returned to phase 2, pt was unable to walk safely and had to be returned to bed in a w/c. called dr reagan and he stated to give pt 30 min and reassess. Had conversation with son and pt about walker use and how it needs to stay in proper position and not way out in front of pt. Pt was able to demonstrate getting out of bed without twisting his back and was able to walk with his FWW safely. Pt denied pain. Called son and stated he was able to go home and reinforced d/c instructions with son as well as pt. Dressing changed as it was about 50% saturated. Explained to son how to change dressing if needed and if continue to have to do dressing changes that they need to discuss restarting coumadin with Dr Reagan or his PCP. Son stated understanding of instructions.
== END 2020-12-05 16:10 | disposition home or self-care (01) | DRG 460 ==
LOC: AC 15:38 → OR 12-06 12:52
PROVIDERS: Referring Provider Orthopaedic Surgery; Visit Provider Orthopaedic Surgery
PROC: (CPT 63042; principal; 2020-12-05 12:00)
DX: M48.062 Spinal stenosis, lumbar region with neurogenic claudication (principal); T84.038A Mechanical loosening of other internal prosthetic joint, initial encounter; M54.16 Radiculopathy, lumbar region; M96.1 Postlaminectomy syndrome, not elsewhere classified; I48.92 Unspecified atrial flutter; I42.9 Cardiomyopathy, unspecified; I48.91 Unspecified atrial fibrillation; I10 Essential (primary) hypertension; G47.33 Obstructive sleep apnea (adult) (pediatric); N40.0 Benign prostatic hyperplasia without lower urinary tract symptoms; E66.9 Obesity, unspecified; Z68.33 Body mass index [BMI] 33.0-33.9, adult; Z87.891 Personal history of nicotine dependence; Z79.01 Long term (current) use of anticoagulants; Z20.822 Contact with and (suspected) exposure to COVID-19
CPT/HCPCS: 63042; 72100; 76000; 82962; 85610; 87635; C9803; C9290; J0330; J0690; J1100; J2405; J2704

== ENCOUNTER → 2021-12-12 08:44 | Outpatient (CLI) | payer MEDICARE, OTHER, SELFPAY ==
[2020-10-29 17:18] VITALS: BMI 33.0
[2021-12-12 09:37] LABS: COVID19 -Nasal RAPID Negative (Negative)
== END ==
PROVIDERS: Referring Provider Internal Medicine; Visit Provider Internal Medicine
DX: Z20.822 Contact with and (suspected) exposure to COVID-19 (principal)
CPT/HCPCS: 87635; C9803

== ENCOUNTER → 2021-12-12 08:46 | Outpatient (CLI) | payer MEDICARE, OTHER, SELFPAY ==
[2020-10-29 17:18] VITALS: BMI 33.0
--- NOTE | 2021-12-17 07:44 | P.PFT.S_ITS ---
Pulmonary Function Test Referral & Results Date Patient Seen: 12/12/21 Requesting provider: Ned Vargas Results: The spirometry demonstrates an FVC of 2.60 L which is 58% of predicted. The FEV1 was measured at 1.91 L which is 60% of predicted. The FEV1/FVC ratio was 74 which is 103% of predicted. Following the administration of bronchodilator there was 9% improvement in FEV1 and a 50% improvement in FEF 25-75% Lung volumes show an SVC of 2.75 L which is 57% of predicted. The diffusing capacity was measured at 24.76 which is 68% of predicted. No hemoglobin value was provided, so no correction for potential anemia could be made, if appropriate. The maximum voluntary ventilation was reduced Interpretation: This study demonstrates possibly mild obstructive lung disease based on red uction FEV1 although FEV1/FVC ratio is preserved. There is some evidence of benefit following the administration of bronchodilator which also supports the presence of obstructive lung disease Lung volumes are reduced based on reduction SVC suggesting [id number] restrictive lung disease which may well explain the abnormalities in FEV1 as well There is also [id number] reduction diffusing capacity suggesting disease at the capillary alveolar level Clinical correlation suggested
== END ==
PROVIDERS: Referring Provider Internal Medicine Cardiovascular Disease; Visit Provider Internal Medicine Cardiovascular Disease
DX: J44.9 Chronic obstructive pulmonary disease, unspecified (principal); Z79.899 Other long term (current) drug therapy; Z20.822 Contact with and (suspected) exposure to COVID-19
CPT/HCPCS: 87635; 94060; 94726; 94729; C9803

== ENCOUNTER → 2023-03-25 12:06 | Outpatient (CLI) | payer MEDICARE, OTHER, SELFPAY ==
[2020-10-29 17:18] VITALS: BMI 33.0
--- NOTE | 2023-04-01 10:49 | PM.PFT.1 ---
Pulmonary Function Test Referral & Results Date Patient Seen: 03/25/23 Results: The spirometry demonstrates an FVC of 2.22 L which is 50% of predicted. The FEV1 was measured at 1.83 L which is 50% of predicted. The FEV1/FVC ratio was 82 which is 116% of predicted. Following the administration of bronchodilator there was 16% improvement in FEV1 and a 76% improvement in FEF 25-75%. Lung volumes show an SVC of 2.82 L which is 59% of predicted. The diffusing capacity was measured at 24.81 which is 68% of predicted. No hemoglobin value was provided, so no correction for potential anemia could be made, if appropriate. The maximum voluntary ventilation was reduced Interpretation: This study demonstrates moderate obstructive lung disease based on reduction FEV1 although FEV1/FVC ratio is preserved. There is also evidence of significant benefit following bronchodilator administration as above There is a moderate reduction in lung volumes suggesting the presence of moderate restrictive lung disease which may explain some of the abnormality in the FEV1 above There is also baff-er-uozazbzq reduction diffusing capacity suggesting the presence of disease at the capillary alveolar level Compared to PFTs performed in December 2021, current study is essentially unchanged
== END ==
PROVIDERS: PCP Internal Medicine; Referring Provider Internal Medicine; Visit Provider Internal Medicine
DX: Z79.899 Other long term (current) drug therapy (principal); Z87.891 Personal history of nicotine dependence
CPT/HCPCS: 94010; 94060; 94726; 94729

== ENCOUNTER → 2023-10-08 11:47 | Outpatient (CLI) | payer MEDICARE, OTHER, SELFPAY ==
[2020-10-29 17:18] VITALS: BMI 33.0
== END ==
PROVIDERS: PCP Internal Medicine; Referring Provider Internal Medicine Cardiovascular Disease; Visit Provider Internal Medicine Cardiovascular Disease
DX: Z79.899 Other long term (current) drug therapy (principal); Z87.891 Personal history of nicotine dependence; J98.8 Other specified respiratory disorders
CPT/HCPCS: 94060; 94726; 94729

== ENCOUNTER → 2024-04-04 16:33 | Outpatient (CLI) | payer MEDICARE, OTHER, SELFPAY ==
[2020-10-29 17:18] VITALS: BMI 33.0
== END ==
PROVIDERS: PCP Internal Medicine; Referring Provider Internal Medicine Cardiovascular Disease; Visit Provider Internal Medicine Cardiovascular Disease
DX: Z79.899 Other long term (current) drug therapy (principal); Z87.891 Personal history of nicotine dependence; R94.2 Abnormal results of pulmonary function studies
CPT/HCPCS: 94060; 94726; 94729